=== PATIENT | male | born 1970 | race Caucasian/White ===

== ENCOUNTER → 2021-04-07 12:42 | Outpatient (CLI) | payer OTHER, SELFPAY ==
--- NOTE | 2021-04-07 12:50 | RAD_ITS ---
STUDY: X-RAY BONE SURVEY COMPLETE REASON FOR EXAM: Male, 50 years old. HYPERCALCEMIA TECHNIQUE: Single frontal view of the chest. One view of the pelvis was obtained. 2 views of the cervical spine were obtained. 2 views of the thoracic spine were obtained. 2 views of the lumbar spine were obtained. 1 views of the femur. 1 views of the humerus. : 2 views of the skull were obtained. COMPARISON: None. FINDINGS: CHEST: The lungs are clear and expanded. There is no demonstrated pleural abnormality. Normal size heart. Normal mediastinum and valente. Normal visualized pulmonary arteries. Normal visualized aortic arch and descending thoracic aorta. Normal visualized thoracic spine. Normal visualized ribs, clavicles, and shoulders. There is no demonstrated abnormality of the visualized soft tissue structures of the upper abdomen. PELVIS: There is a non-specific bowel gas pattern. Normal visualized soft tissue structures. Normal bilateral iliac wings, sacroiliac joints and visualized sacrum. Normal visualized bilateral superior and inferior pubic rami. Normal pubic symphysis. Normal ischial tuberosities. Normal visualized right femoral head. Normal right acetabulum. Normal right hip joint. Normal visualized left femoral head. Normal left acetabulum. Normal left hip joint. CERVICAL SPINE: Normal anterior atlantoaxial articulation. Normal odontoid process. Normal cervical lordosis. Normal vertebral bodies and endplates. Normal disc space heights. Normal visualized intervertebral neuroforamina. The soft tissue structures are unremarkable. THORACIC SPINE: Normal kyphosis of the thoracic spine. There is no substantial scoliosis. Normal thoracic vertebrae and endplates. Normal disc space heights. The soft tissue structures are unremarkable. LUMBAR SPINE: Normal lumbar lordosis. There is no substantial scoliosis. There is a normal alignment of the vertebrae. Normal vertebral bodies and endplates. Normal disc space heights. The soft tissue structures are unremarkable. RIGHT FEMUR: Normal visualized femur. Normal visualized soft tissue structure. LEFT FEMUR: Normal visualized femur. Normal visualized soft tissue structure. RIGHT HUMERUS :Normal visualized humerus. There is no demonstrated fracture or osseous destructive process. There is no demonstrated soft tissue abnormality. LEFT HUMERUS:Normal visualized humerus. There is no demonstrated fracture or osseous destructive process. There is no demonstrated soft tissue abnormality. SKULL: There is no demonstrated soft tissue swelling. Normal osseous calvarium. Normal visualized facial bones. Normal visualized paranasal sinuses. RAD/Bone Survey Comp(Axial&Append) IMPRESSION: No radiographic evidence of metastatic disease or multiple myeloma. No radiographic evidence of hyperparathyroidism. Electronically Signed: Jacinto Melchor MD at 17:29 EDT Tel , Service support ,
== END ==
PROVIDERS: PCP Nurse Practitioner; Referring Provider Nurse Practitioner; Visit Provider Nurse Practitioner
DX: E83.52 Hypercalcemia (principal)
CPT/HCPCS: 77075

== ENCOUNTER → 2021-08-16 12:57 | Outpatient (CLI) | payer OTHER, SELFPAY ==
--- NOTE | 2021-08-16 13:01 | CT_ITS ---
STUDY: CT BRAIN WITH AND WITHOUT CONTRAST REASON FOR EXAM: Male, 50 years old. ATAXIA RADIATION DOSAGE (If Supplied By Facility): CTDIvol = ( 47.06 ) mGy, DLP = ( 1727.72 ) mGycm TECHNIQUE: Transaxial CT imaging of the brain was performed pre and post contrast administration. The examination was performed with intravenous administration of 50 ML ISOVUE 370. Individualized dose optimization techniques were used for this CT. COMPARISON: Comparison is made with prior study dated 03/13/2010. FINDINGS: Normal soft tissue structures. Normal calvarium. Normal size ventricles and extra-axial spaces for the patient''s age. Normal white matter tracts of the cerebral hemispheres. Normal basal ganglia and thalami. Normal brainstem. Normal cerebellum. There is no intracranial hemorrhage. There are no findings of an acute ischemic infarction. Normal visualized paranasal sinuses. CT/Brain/Head W/WO Contrast IMPRESSION: Normal unenhanced and enhanced CT scan of the brain. Electronically Signed: Jamey Ortega MD at 14:46 EDT , Service support ,
[2021-08-16 13:41] LABS: CREATININE FINGERSTICK 1.2 mg/dL (0.70-1.30); EGFR FINGERSTICK > 60.0000 mL/min (>60)
== END ==
PROVIDERS: PCP Nurse Practitioner; Referring Provider Nurse Practitioner; Visit Provider Nurse Practitioner
DX: R51.9 Headache, unspecified (principal)
CPT/HCPCS: 70470; Q9967

== ENCOUNTER → 2023-01-18 | Outpatient (CLI) | payer OTHER, SELFPAY ==
[2023-01-18 15:37] LABS: Anion Gap 8 (5-15); BUN 14 mg/dL (7-18); BUN/Creat Ratio 13.7 RATIO (10-20); Calcium,Total 9.7 mg/dL (8.5-10.1); Chloride 109 mmol/L (98-107); Creatinine, Serum 1.02 mg/dL (0.70-1.30); EST Glomerular Filtration Rate 81 mL/min (>60); Est Glom Filt Rate - Afr Amer 98 mL/min (>60); Glucose 103 mg/dL (74-106); Potassium 3.6 mmol/L (3.5-5.1); Sodium Level 140 mmol/L (136-145)
== END | disposition home or self-care (01) ==
LOC: MTLAB 12:34
PROVIDERS: PCP Nurse Practitioner Family; Referring Provider Internal Medicine Pulmonary Disease; Visit Provider Internal Medicine Pulmonary Disease
DX: R09.02 Hypoxemia (principal)
CPT/HCPCS: 36415; 80048

== ENCOUNTER → 2023-02-20 | Outpatient (CLI) | payer OTHER, SELFPAY ==
[2023-02-20 12:23] LABS: Troponin-I HS 5 pg/mL (3.0-78.0)
== END | disposition home or self-care (01) ==
LOC: LABSPEC 11:58
PROVIDERS: PCP Nurse Practitioner Family; Referring Provider Nurse Practitioner Family; Visit Provider Nurse Practitioner Family
DX: R73.03 Prediabetes (principal); R07.89 Other chest pain
CPT/HCPCS: 84484

== ENCOUNTER → 2023-07-10 | Outpatient (CLI) | payer OTHER, SELFPAY ==
--- NOTE | 2023-07-14 14:23 | STRESSREP ---
Stress Test Report Date: 07/10/2023 Procedure: Exercise tolerance test Indications: Chest pain Consent: Per the patient Procedure: The patient exercised on a Felix protocol for 8 minutes and 15 seconds achieving a peak heart rate of 164 bpm (98% predicted maximal heart rate) with a peak blood pressure 200/98 mmHg and a peak MET capacity of approximately 10.1 MET's. The baseline ECG demonstrated normal sinus rhythm. The peak exercise ECG demonstrated sinus tachycardia with no significant ischemic changes. [There were no cardiac dysrhythmias pretest, during exercise, or recovery]. The functional capacity was considered normal for age. The patient had no complaint of chest discomfort during exercise or recovery. The examination was discontinued secondary to achieving target heart rate. Impression: 1. Technically adequate (percent predicted maximal heart rate greater than 85%) exercise tolerance test 2. Stress test is negative for exercise-induced chest pain. 3. Stress test test is negative for exercise-induced EKG changes of ischemia. 4. Functional capacity is normal for age This note was generated with [employer] software. It may contain incorrect words, spelling, and punctuation that were not noted in checking the note before signing.
== END | disposition home or self-care (01) ==
LOC: CVS 11:16
PROVIDERS: PCP Nurse Practitioner Family; Referring Provider Nurse Practitioner Family; Visit Provider Nurse Practitioner Family
DX: R07.89 Other chest pain (principal)
CPT/HCPCS: 93017

== ENCOUNTER → 2024-09-04 | Outpatient (CLI) | payer OTHER, SELFPAY ==
--- NOTE | 2024-09-04 10:49 | VDLE_ITS ---
Reason For Study: LLE Pain RIGHT LEFT CFV is compressible, spontaneous, phasic, GSV is normal. competent and demonstrates normal CFV is compressible, spontaneous, phasic, augmentation. competent, and demonstrates normal Procedure augmentation. This is a venous duplex using B-mode, color FV is compressible, spontaneous, phasic, flow and spectral Doppler. competent and demonstrates normal Exam performed in department. augmentation. The exam was diagnostic. POP V is compressible, spontaneous, phasic, A preliminary report was called and/or faxed competent and demonstrates normal to ALBERTO / Yari Bella. augmentation. T/P Trunk is compressible. PTV is compressible. LT PerV is compressible. VL/Venous Duplex US, Unilateral Interpretation Summary Deep veins of the left lower extremity are patent and compressible segmentally. There is no evidence of left lower extremity deep vein thrombosis. Valvular competence appears intac t within the proximal deep venous system on the left . The left great saphenous vein appears patent a nd compressible segmentally. The right common femoral vein is patent and compressible . Ordering Physician: Yari Bella Referring Physician: Yari Bella Performed By: Medardo Garcia RVT
== END | disposition home or self-care (01) ==
LOC: CVS 10:43
PROVIDERS: PCP Nurse Practitioner Family; Referring Provider Nurse Practitioner Family; Visit Provider Nurse Practitioner Family
DX: M79.662 Pain in left lower leg (principal)
CPT/HCPCS: 93971

== ENCOUNTER 2025-04-26 08:00 | Outpatient (RCR) | payer OTHER, SELFPAY ==
--- NOTE | 2025-03-19 15:30 | HP.PTEVAL_ITS ---
Patient's Visit Information Visit Information Visit Information: SUSANA MOJICA is a 54 year old M referred to Physical Therapy by JUDY Salamanca with a diagnosis of R shoulder pain. Date of Evaluation: 03/19/25 Physical Therapist: Bill Roque, PT, ATC Visit Plan Frequency: 2x /Week Duration: 4-6 Weeks Plan: R shoulder rot cuff strengthening, scap stab ex's, UBE, and HEP Subjective Subjective: Pt reports he has had R shoulder pain for 3 months. Pt notes the pain has progressively worsened over this span. Pt reports he lifted a steel whe el yesterday which resulted a sharp pain that radiated the whole way down his arm. 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 Pt is R hand dominant. 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 Pt reports this requires him to constantly use his R UE to operate the machinery. Pt notes occasional sleep difficulty at this time secondary to pain. Pt reports his pain is the worst when he elevates his arm in front of him, or reaches behind him. Pt denies shoulder popping, locking up, or giving out. 4/10 pain while sitting here in the clinic, 8-9/10 at worst (after his work day) Pain R shoulder: Pain Intensity (Out of 10): 4 Pain Intensity Range: 9 Objective Objective: Neuro: B UE sensation is WNL to light touch with the exception of R shoulder being hyposensitive to light touch. Palpation: Minor tenderness on distal supraspinatus and lateral shoulder. No obvious deformity noted at this time. ROM: L shoulder flex= 160, abd= 170, ER= 30, IR= WNL; R shoulder flex= 155, abd= 120, ER= 10, IR= WNL MMT: L shoulder flex= 27, abd= 40, ER= 26, IR= 31 #F; R shoulder flex= 10, abd= 8, ER= 12, IR= 19 #F Special tests: Pos empty can and HK sign. Balance/Special Test Scores Quick DASH Score: 36.3625 Goals Goal 1:: Decrease R shoulder pain x 50% to aid with sleep Goal Time Frame: 4-6 Weeks Goal 2:: Increase R shoulder ROM flex and abd ROM x 20-30 degrees to aid with overhead lifting activity Goal Time Frame: 4-6 Weeks Goal 3:: Increase R shoulder strength x 10#F to aid with IADL Goal Time Frame: 4-6 Weeks Goal 4:: I with HEP Goal Time Frame: 4-6 Weeks Rehabilitation Potential Physical Therapy Diagnosis: Pt has R shoulder pain, weakness, and limited ROM secondary to R shoulder impingement syndrome Rehabilitation Potential: Good Anticipated Interventions Patient/Client Instruction: Educate patient on: Condition and Plan of Care For the Purpose of:: To improve self management Therapeutic Exercise to Include: Strength training, Endurance training, Flexibilty training, Active ROM and Scapular Strength/Stabilization For the Purpose of:: To decrease pain, To increase ROM and To improve muscle performance and motor function Cryotherapy (ice pack, ice massage): Yes For the Purpose of:: To decrease pain Text: Thank you for the opportunity to evaluate your patient. For Medicare and Medicare HMO plans, please review the plan of care and approve it. It will need to be FAXED BACK to us at [phone] for Medicare purposes. For Medicare only, by signing this I certify the plan of care. Please let me know if there are questions or concerns regarding this plan of care. Physician Signature: Date:
--- NOTE | 2025-04-13 08:54 | HP.PTREVAL ---
Re-Evaluation Intro: Yari Bella, JARED-C, It has been my pleasure to treat SUSANA MOJICA over the last 9 visits for R shoulder pain. Please see the progress note below for an update on the physical therapy plan of care! Subjective Subjective: I think it has gotten better, but I still have pain. Objective Objective/Function: R shoulder pain ranges from 3-4/10 R shoulder ROM: flex= 170, abd= 120 degrees R shoulder MMT: flex= 20, abd= 9, ER= 8, IR= 22 #F Pt is showing progress, but still lacks functional strength Plan Plan Plan: 04/13/25- Cont with R shoulder rot cuff strengthening, scap stab ex's, UBE, and HEP Balance/Gait/Functional tests Balance/Special Test Scores Quick DASH Score: 38.6350 Goals Goals Goal 1:: Decrease R shoulder pain x 50% to aid with sleep Goal Time Frame: 4-6 Weeks Goal 2:: Increase R shoulder ROM flex and abd ROM x 20-30 degrees to aid with overhead lifting activity Goal Time Frame: 4-6 Weeks Goal 3:: Increase R shoulder strength x 10#F to aid with IADL Goal Time Frame: 4-6 Weeks Goal 4:: I with HEP Goal Time Frame: 4-6 Weeks Anticipated Interventions Anticipated Interventions Patient/Client Instruction: Educate patient on: Condition and Plan of Care For the Purpose of:: To improve self management Therapeutic Exercise to Include: Strength training, Endurance training, Flexibilty training, Active ROM and Scapular Strength/Stabilization For the Purpose of:: To decrease pain, To increase ROM and To improve muscle performance and motor function Cryotherapy (ice pack, ice massage): Yes For the Purpose of:: To decrease pain Re-Evaluation Ending Re-evaluation ending: Please do not hesitate to contact me at [phone] by phone or if you have questions or concerns regarding this new plan of care! Sincerely, Bill Roque, PT, ATC
--- NOTE | 2025-06-15 08:38 | HP.PT.NRP ---
Patient Information Patient Information: SUSANA MOJICA was seen in my office for initial evaluation on 03/19/25. The following Plan of Care was established for this patient: POC Established Initial Frequency: 2x /Week Initial Duration: 4-6 Weeks Anticipated Interventions Patient/Client Instruction: Educate patient on: Condition and Plan of Care For the Purpose of:: To improve self management Therapeutic Exercise to Include: Strength training, Endurance training, Flexibilty training, Active ROM and Scapular Strength/Stabilization For the Purpose of:: To decrease pain, To increase ROM and To improve muscle performance and motor function Cryotherapy (ice pack, ice massage): Yes For the Purpose of:: To decrease pain Last Seen Last Seen: This patient was last seen in our office . Pertinent comments regarding their Physical therapy will appear below: Pt has not returned in greater than 30 days and is discontinued at this time. At this point I will be discontinuing this patient from physical therapy. I would be happy to see this patient again in the future if found appropriate by the physician. Thank you! Bill Roque, PT, ATC Balance/Gait/Functional tests Balance/Special Test Scores Quick DASH Score: 38.6350
== END 2025-04-26 19:00 | disposition home or self-care (01) ==
LOC: PT 08:00
PROVIDERS: PCP Nurse Practitioner Family; Referring Provider Nurse Practitioner Family; Visit Provider Nurse Practitioner Family
DX: M25.511 Pain in right shoulder (principal)
CPT/HCPCS: 97110; 97161; 97530

== ENCOUNTER → 2025-06-19 | Outpatient (CLI) | payer OTHER, SELFPAY ==
--- NOTE | 2025-06-19 07:30 | MRI_ITS ---
PROCEDURE: UPPER EXT JOINT ONLY(ROUTINE) 06/19/2025 REASON FOR EXAM: RIGHT SHOULDER PAIN TECHNIQUE: T1, T2, PD, multiplanar multisequence images through the right shoulder were obtained without contrast. COMPARISON: March 17, 2025 FINDINGS: Bone Marrow: There is no bony contusion or occult fracture. AC joint: There is moderate AC joint hypertrophy without evidence of separation. There is a type 2 acromion. Rotator cuff: There is mild supraspinatus muscular atrophy. There is a full- thickness, 75% width tear of the supraspinatus footplate without retraction. There is moderate distal infraspinatus and subscapularis tendinopathy without full-thickness tear or retraction. The teres minor appears intact. Labrum: The labrum appears intact. Biceps tendon: The biceps tendon is present in the biceps tendon groove, with intact anchors. Effusion: There is a trace joint effusion. There is a trace amount of fluid in the subacromial subdeltoid bursa. There is no soft tissue mass or cyst. MRI/Upper Ext Joint Only(Routine) IMPRESSION: There is moderate AC joint hypertrophy without evidence of separation. There is mild supraspinatus muscular atrophy. There is a full-thickness, 75% width tear of the supraspinatus footplate withou t retraction. There is moderate distal infraspinatus and subscapularis tendinopathy without f ull-thickness tear or retraction. There is a trace joint effusion. There is a trace amount of fluid in the subacromial subdeltoid bursa. Reading Location: [facility]
== END | disposition home or self-care (01) ==
LOC: MRI 06:58
PROVIDERS: PCP Nurse Practitioner Family; Referring Provider Internal Medicine; Visit Provider Internal Medicine
DX: M25.511 Pain in right shoulder (principal)
CPT/HCPCS: 73221

== ENCOUNTER 2025-08-18 05:54 | Day surgery (SDC) | payer OTHER, SELFPAY ==
--- NOTE | 2025-08-11 08:21 | EKG12_ITS ---
Test Reason : PRE OP
[2025-08-11 09:23] LABS: Hematocrit 43.4 % (40-54); Hemoglobin 14.8 g/dL (13.0-16.5); Mean Corp Hgb Conc 34.1 g/dL (32-36); Mean Corpuscular Volume 91.8 fL (80-94); Mean Platelet Vol. 9.7 fl (6.2-12.0); Platelet Count 352 K/mm3 (150-450); RBC Distribution Width CV 13.8 % (11.6-14.6); RBC Distribution Width SD 46.9 fl (35.1-43.9); Red Blood Count 4.73 M/mm3 (4.6-6.2); White Blood Count 10.4 K/mm3 (4.4-11.0)
--- NOTE | 2025-08-12 16:33 | PAT.ANESEVAL ---
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 When Was Last Pacemaker Check QUESTION #4 FULL TEXT: You/Your Family Experience fever (hyperthermia) with Anesthesia Last Oral Intake Last Oral intake: Last Oral Intake NPO since Meds taken in AM with sips of water? Meds patient instructed to take am of surgery PONV PONV - teacher vocal: PONV - teacher vocal Female No 08/09/25 16:03 HX of Motion Sickness No 08/09/25 16:03 HX of N/V After Surgery No 08/09/25 16:03 Non-Smoker Yes 08/09/25 16:03 Duration of Surgery greater Yes 08/09/25 16:03 than 60 minutes Number of Risk Factors 2 08/09/25 16:03 PONV Score Moderate Risk 08/09/25 16:03 Height & Weight Height & Weight: Anesthesia: Height & Weight Height 5 ft 9 in 07/06/25 09:53 Respiratory Assessment Respiratory Assessment - teacher vocal: Respiratory Tract Infection Hx - teacher vocal Hx Respiratory Tract Infection No 08/09/25 16:03 STOP Sleep Apnea STOP Sleep Apnea - teacher vocal: STOP Sleep Apnea - teacher vocal Hx Hypertension Yes 08/09/25 16:03 Hx Sleep Apnea Yes 08/09/25 16:03 CPAP Yes 08/09/25 16:03 BIPAP No 08/09/25 16:03 Do you snore loudly (louder than talking or can be heard Do you often feel tired/ fatigued/ sleepy during daytime? Has anyone observed you stop breathing during sleep? STOP Results Positive 08/09/25 16:03 QUESTION #5 FULL TEXT : Do you snore loudly (louder than talking or can be heard through closed doors)? 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 Specify any problems Hx of Preganancy in last 3 N/A 08/09/25 16:03 Months Nurse Filling Out Transfusion SHILOHOEYO 08/09/25 16:03 & Questions: Date: 08/09/25 08/09/25 16:03 Time: 16:09 08/09/25 16:03 Patient unable to answer at this time (ie. confused, unrespo /Reproduction History /Reproductive History - teacher vocal: /Reproductive Hx- teacher vocal Hx Now Gestational Age (in weeks): EDC: Hx Hx Para Hx Section SAB No 08/09/25 16:03 PFSH Medical History (Updated 08/09/25 @ 16:07 by Shaila Rivas) Wears glasses Anxiety Marijuana use Heartburn Smoker Sleep apnea CPAP (continuous positive airway pressure) dependence History of stress test Arthrosis of right acromioclavicular joint Right rotator cuff tear Impingement of right shoulder Right shoulder pain Appendix abscess High blood pressure Home Medications ?Medication ?Instructions ?Recorded ?Last Taken ?Type amlodipine 5 mg-benazepril 20 mg 1 cap PO QDAY 05/14/25 Unknown History capsule duloxetine 60 mg capsule,delayed 60 mg PO QDAY 05/14/25 Unknown History release fenofibrate nanocrystallized 145 145 mg PO QDAY 05/14/25 Unknown History mg tablet lorazepam 0.5 mg tablet 0.5 mg PO QDAY PRN anxiety 05/14/25 Unknown History Allergy/AdvReac Type Severity Reaction Status Date / Time No Known Allergies Allergy Verified 08/09/25 16:01 Surgical History (Updated 08/09/25 @ 16:09 by Shaila Rivas) History of appendectomy Social History Smoking Status: Current every day smoker tobacco type: cigarettes alcohol intake: never Audit: Pertinent Findings Pertinent Findings EKG Perinent findings: EKG 08/11/2025. Normal sinus rhythm. Recommendation Anesthesia Recommendation Anesthesia recommendation: OPTIMIZED for anesthesia
[2025-08-18] VITALS (11 sets, daily range): BP systolic 128–189; BP diastolic 78–102; PULSE 69–95; RESP 16–20; TEMP 36.1–36.8; O2SAT 92–98; BMI 36.1
[2025-08-18] MEDS: Lactated Ringers 1,000 ML 15 ML IV (06:38)
--- NOTE | 2025-08-18 07:04 | PCM.HP.STD ---
HPI - General HPI Narrative SUSANA MOJICA, is a 54 M who presents for right shoulder arthroscopy, subacromial decompression, rotator cuff repair, distal clavicle excision. No change to history and physical exam. Risks alternatives benefits discussed as well as postoperative instructions and narcotic counseling. Patient understand shoulder marked no further questions or concerns. MR#: [id number] Acct: [id number] Name: SUSANA MOJICA Rep #: [id number] : 1970 Provider: Dr. Stefan Feldman MD Age/Sex: 54/M Location: [facility] [place] Status: Signed Intake Vital Signs 05/14/2508:22 07/06/2509:53 Height 5 ft 9 in 5 ft 9 in Weight: 247 lb 6 oz 245 lb BMI 36.5 36.1 Intake Visit Reasons: RIGHT SHOULDER Chief Complaint: Right shoulder and right arm MRI review Accompanied by: Self Is patient in pain?: Yes Pain scale (1-10): 6 Allergies No Known Allergies Allergy (Unverified 07/06/25 09:55) Medications ?Medication ?Instructions ?Recorded ?Confirmed ?Type amlodipine 5 mg-benazepril 20 mg 1 cap PO QDAY 05/14/25 07/06/25 History capsule duloxetine 60 mg capsule,delayed 60 mg PO QDAY 05/14/25 07/06/25 History release fenofibrate nanocrystallized 145 145 mg PO QDAY 05/14/25 07/06/25 History mg tablet lorazepam 0.5 mg tablet 0.5 mg PO QDAY PRN 05/14/25 07/06/25 History Have you fallen in the past year?: No PFSH Medical History (Updated 07/06/25 @ 10:11 by Stefan Feldman MD) Arthrosis of right acromioclavicular joint Right rotator cuff tear Impingement of right shoulder Right shoulder pain Appendix abscess High blood pressure Social History Smoking Status: Current every day smoker alcohol intake: never HPI RIGHT SHOULDER Details: This documentation accurately reflects the service provided and the decisions made by me, Dr. Stefan Feldman MD 07/06/25 0917. Part of today?s visit was documented by [ ], acting as scribe. SUSANA MOJICA is a 54 year old M here today for FU R shoulder MRI. Cortisone injection 6 weeks ago. 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 Patient is a 1 pack-a-day smoker he has tried to quit in the past. The cortisone injection helped about 80 percent. Supplemental Info [facility] Imaging Services [address] [place] [address] Upper Ext Joint Only(Routine) MR#: [id number] Acct: [id number] Name: SUSANA MOJICA Rep #: [id number] : 1970 M 54 From: Luis Lundberg MD PCP: KISHORE SalamancaC Status: REG CLI Study: Upper Ext Joint Only(Routine) Date of Exam: 06/19/25 Exam# [id number] Ordering Dr: Opal Noyola MD PROCEDURE: UPPER EXT JOINT ONLY(ROUTINE) 06/19/2025 REASON FOR EXAM: RIGHT SHOULDER PAIN TECHNIQUE: T1, T2, PD, multiplanar multisequence images through the right shoulder were obtained without contrast. COMPARISON: March 17, 2025 FINDINGS: Bone Marrow: There is no bony contusion or occult fracture. AC joint: There is moderate AC joint hypertrophy without evidence of separation. There is a type 2 acromion. Rotator cuff: There is mild supraspinatus muscular atrophy. There is a full-thickness, 75% width tear of the supraspinatus footplate without retraction. There is moderate distal infraspinatus and subscapularis tendinopathy without full-thickness tear or retraction. The teres minor appears intact. Labrum: The labrum appears intact. Biceps tendon: The biceps tendon is present in the biceps tendon groove, with intact anchors. Effusion: There is a trace joint effusion. There is a trace amount of fluid in the subacromial subdeltoid bursa. There is no soft tissue mass or cyst. MRI/Upper Ext Joint Only(Routine) IMPRESSION: There is moderate AC joint hypertrophy without evidence of separation. There is mild supraspinatus muscular atrophy. There is a full-thickness, 75% width tear of the supraspinatus footplate without retraction. There is moderate distal infraspinatus and subscapularis tendinopathy without full-thickness tear or retraction. There is a trace joint effusion. There is a trace amount of fluid in the subacromial subdeltoid bursa. I independently reviewed the imaging. Concur with radiologist report. Coding Level of Care Code Off vis,est,level 4 Diagnoses Right shoulder pain M25.511 Impingement of right shoulder M25.811 Right rotator cuff tear M75.101 Arthrosis of right acromioclavicular joint M19.011 Assessment and Plan Assessment and Plan (1) Right shoulder pain: Status: Acute Plan: 54 yr M with R shoulder MRI moderate AC joint hypertrophy, full-thickness, 75% width tear of the supraspinatus footplate without retraction. There is a trace amount of fluid in the subacromial subdeltoid bursa. Smoker 1ppd, I counseled him to quit or cut back as this is a normal risk factor for delayed or nonhealing rotator cuff repairs. The patient has pain at the AC joint with a positive cross body adduction test indicating he may benefit from a distal clavicle excision. We discussed the pros and cons risks and benefits of conservative versus surgical management. Generally people with full-thickness rotator cuff tears do better with surgical repair at 10 years follow-up. Patient understands wished to go ahead with right shoulder arthroscopy, subacromial decompression, rotator cuff repair, distal clavicle excision. Low ROHI so not indicated for patch. Pros and cons risks and benefits were discussed with the patient including but not limited to infection, pain, stiffness, bleeding, damage to surrounding structures, neurovascular injury, recurrence or retear, failure or wear of hardware or fixation, instability, fracture, deep vein thrombosis and pulmonary embolism, anesthetic risks, , patient dissatisfaction, need for further surgery and other risks. Patient understood and wished to proceed with surgery, and signed the informed consent documentation. Patient counselled on non-operative and operative means of treating shoulder pain. Conservative options include but not limited to: 1. Rest and Activity Modification: Giving your shoulder time to heal by avoiding movements that cause pain can help. This may involve limiting overhead activities or heavy lifting. 2. Physical Therapy: A physical therapist can guide you through exercises that strengthen the muscles around the shoulder, improve flexibility, and reduce strain on the rotator cuff tendon. 3. Ice and Heat Therapy: Applying ice to the shoulder can help reduce swelling and pain, especially after activity. Heat can be helpful to relax tense muscles and improve blood flow before exercises. 4. Anti-Inflammatory Medications: Mviz-bff-vyffgmv medications like ibuprofen or naproxen can help reduce pain and inflammation in the tendon. 5. Corticosteroid Injections: If the pain is more severe, a steroid injection can reduce inflammation in the shoulder and provide relief for a longer period. 6. Platelet-Rich Plasma (PRP) Injection: This treatment involves using your own blood to promote healing in the tendon. The plasma is rich in growth factors that can encourage tissue repair. 7. TENS (Transcutaneous Electrical Nerve Stimulation): This therapy uses a small electrical current to help manage pain and promote healing by stimulating nerves. (2) Impingement of right shoulder: Status: Acute (3) Right rotator cuff tear: Status: Acute (4) Arthrosis of right acromioclavicular joint: Status: Acute Clinical Quality Measures Falls Risk Screening/Assistive Devices Have you fallen in the past year?: No Ortho Exam General General: Yes no acute distress Neurologic: Yes alert and Yes oriented x3 Psychologic: Yes reasonable and appropriate Right Shoulder Skin/Wound: Yes CDI, No ecchymosis, No erythema and No swelling Testing: Positive Hawkin's, Neer's, AROM-Forward Elevation 0-180, AROM-External Rotation at side 0-60, empty can, cross arm and belly press normal; Negative Speed's, TTP Biceps, TTP AC Joint, Drop Arm or scapular winging SHOULDER: normal motor and sens to ax nerve, and MRU and AIN/PIN Strength 4+ forward elevation and 5 in external rotation positive painful arc sign. pain at ACJ [facility] Medical History (Updated 08/09/25 @ 16:07 by Shaila Rivas) Wears glasses Anxiety Marijuana use Heartburn Smoker Sleep apnea CPAP (continuous positive airway pressure) dependence History of stress test Arthrosis of right acromioclavicular joint Right rotator cuff tear Impingement of right shoulder Right shoulder pain Appendix abscess High blood pressure Home Medications ?Medication ?Instructions ?Recorded ?Last Taken ?Type amlodipine 5 mg-benazepril 20 mg 1 cap PO QDAY 05/14/25 08/18/25 History capsule duloxetine 60 mg capsule,delayed 60 mg PO QDAY 05/14/25 Unknown History release fenofibrate nanocrystallized 145 145 mg PO QDAY 05/14/25 Unknown History mg tablet lorazepam 0.5 mg tablet 0.5 mg PO QDAY PRN anxiety 05/14/25 08/17/25 History Allergy/AdvReac Type Severity Reaction Status Date / Time No Known Allergies Allergy Verified 08/18/25 06:27 Surgical History (Updated 08/09/25 @ 16:09 by Shaila Rivas) History of appendectomy Social History Smoking Status: Current every day smoker tobacco type: cigarettes alcohol intake: never Vital Signs Vital Signs Vital Signs: 08/18/25 06:28 08/18/25 06:28 Temperature 97.8 F Temperature Source Temporal Pulse Rate 89 Respiratory Rate 16 Respiratory Pattern Normal Blood Pressure 128/78 H Blood Pressure Mean 94 Blood Pressure Source Monitor Blood Pressure Position Semi-Fowlers Blood Pressure Location Right Arm Pulse Ox 96 Oxygen Delivery Method Room Air Weight Weight: 244 lb 11.41 oz Body Mass Index (BMI) 36.1 Results Lab / Micro Data 08/11/25 08:18
[2025-08-18] MEDS: Midazolam 2 MG/2 ML Syringe IV (07:10)
--- NOTE | 2025-08-18 07:28 | PCM.PRE.AN2 ---
ASA Classification* ASA Classification ASA Classification: 2 Assessment & Plan Anesthesia* Anesthesia Assessment Anesthesia Assessment: Discussed sedation and/or anesthesia options, risks, benefits, and alternatives with patient/parents/legal guardian/POA. Questions invited. The patient/parents/legal guardian/POA seems to understand and agrees to proceed with anesthesia plan. Reviewed the physical assessment, medical history, allergy history and patient home medications list prior to surgery/procedure/anesthetic and documented any changes. Performed airway and anesthesia risk assessments. Anesthesia Type Anesthesia Type: General and Block Anesthesia Focused Assessment* Temperature: 97.8 F Pulse Rate: 89 Blood Pressure: 128/78 Respiratory Rate: 16 Pulse Ox: 96 Airway Assessment Mouth opens: >3 cm Mallampati Score: II Labs Anesthesia Preop lab: CBC WBC, (4.4-11.0) 10.4 K/mm3 08/11/25, 08:18 RBC, (4.6-6.2) 4.73 M/mm3 08/11/25, 08:18 Hgb, (13.0-16.5) 14.8 g/dL 08/11/25, 08:18 Hct, (40-54) 43.4 % 08/11/25, 08:18 Plt Count, (150-450) 352 K/mm3 08/11/25, 08:18 CHEMISTRY Potassium, (3.5-5.1) 3.6 mmol/L 01/18/23, 12:36 Sodium, (136-145) 140 mmol/L 01/18/23, 12:36 BUN, (7-18) 14 mg/dL 01/18/23, 12:36 Creatinine, (0.70-1.30) 1.02 mg/dL 01/18/23, 12:36 Glucose, (74-106) 103 mg/dL 01/18/23, 12:36 COAG Pre-Assessment Diagnosis/Proposed Procedure Planned Operative Procedure(s): ROTATOR CUFF REPAIR, SUBACROMIAL DECOMPRESSION Anesthesia History 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 When Was Last Pacemaker Check QUESTION #4 FULL TEXT: You/Your Family Experience fever (hyperthermia) with Anesthesia Last Oral Intake Last Oral intake: Last Oral Intake NPO since 19:00 08/18/25 06:28 Meds taken in AM with sips of Yes 08/18/25 06:28 water? Meds patient instructed to amlodipine 08/18/25 06:28 take am of surgery PONV PONV - software test technician: PONV - software test technician Female No 08/09/25 16:03 HX of Motion Sickness No 08/09/25 16:03 HX of N/V After Surgery No 08/09/25 16:03 Non-Smoker Yes 08/09/25 16:03 Duration of Surgery greater Yes 08/09/25 16:03 than 60 minutes Number of Risk Factors 2 08/09/25 16:03 PONV Score Moderate Risk 08/09/25 16:03 Height & Weight Height & Weight: Anesthesia: Height & Weight Height 5 ft 9 in 08/18/25 06:28 Weight: 111 kg 08/18/25 06:28 Body Mass Index (BMI) 36.1 08/18/25 06:28 Respiratory Assessment Respiratory Assessment - software test technician: Respiratory Tract Infection Hx - software test technician Hx Respiratory Tract Infection No 08/09/25 16:03 STOP Sleep Apnea STOP Sleep Apnea - software test technician: STOP Sleep Apnea - software test technician Hx Hypertension Yes 08/09/25 16:03 Hx Sleep Apnea Yes 08/09/25 16:03 CPAP Yes 08/09/25 16:03 BIPAP No 08/09/25 16:03 Do you snore loudly (louder than talking or can be heard Do you often feel tired/ fatigued/ sleepy during daytime? Has anyone observed you stop breathing during sleep? STOP Results Positive 08/09/25 16:03 QUESTION #5 FULL TEXT : Do you snore loudly (louder than talking or can be heard through closed doors)? 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 Specify any problems Hx of Preganancy in last 3 N/A 08/09/25 16:03 Months Nurse Filling Out Transfusion SKOERNER 08/09/25 16:03 & Questions: Date: 08/09/25 08/09/25 16:03 Time: 16:09 08/09/25 16:03 Patient unable to answer at this time (ie. confused, unrespo /Reproduction History /Reproductive History - software test technician: /Reproductive Hx- software test technician Hx Now Gestational Age (in weeks): EDC: Hx Hx Para Hx Section SAB No 08/09/25 16:03 Active Medications Active Medications: Current Medications Generic Name Dose Route Start Last Admin Trade Name Freq PRN Reason Stop Dose Admin Cefazolin Sodium 2 gm/ Sodium 110 mls @ 200 mls/hr 08/18/25 07:30 Chloride IV 08/18/25 08:02 INTRAOP ONE Lactated Ringer's 1,000 mls @ 15 mls/hr 08/18/25 06:30 08/18/25 06:38 IV 15 mls/hr .Q48H AYO Administration PFSH Medical History Wears glasses Anxiety Marijuana use Heartburn Smoker Sleep apnea CPAP (continuous positive airway pressure) dependence History of stress test Arthrosis of right acromioclavicular joint Right rotator cuff tear Impingement of right shoulder Right shoulder pain Appendix abscess High blood pressure Home Medications ?Medication ?Instructions ?Recorded ?Last Taken ?Type amlodipine 5 mg-benazepril 20 mg 1 cap PO QDAY 05/14/25 08/18/25 History capsule duloxetine 60 mg capsule,delayed 60 mg PO QDAY 05/14/25 Unknown History release fenofibrate nanocrystallized 145 145 mg PO QDAY 05/14/25 Unknown History mg tablet lorazepam 0.5 mg tablet 0.5 mg PO QDAY PRN anxiety 05/14/25 08/17/25 History Allergy/AdvReac Type Severity Reaction Status Date / Time No Known Allergies Allergy Verified 08/18/25 06:27 Surgical History History of appendectomy Social History Smoking Status: Current every day smoker tobacco type: cigarettes alcohol intake: never Review of Systems (Anesthesia) ROS Narrative System reviewed and no additional complaints, except as documented.
[2025-08-18] MEDS: Cefazolin 1 GM/5 ML Vial 2 GM IV (07:30)
[2025-08-18] MEDS: Lidocaine 1% (5 ml sdv) 5 ML Vial 10 ML IV (07:35)
[2025-08-18] MEDS: Epinephrine (1 mg/ml) 1 MG/ML VIAL (08:00)
--- NOTE | 2025-08-18 08:53 | OP.PCM_ITS ---
Procedures Musculoskeletal
--- NOTE | 2025-08-18 08:53 | PCM.OPRPT ---
Problems Associated Problem List Diagnoses (1) Impingement of right shoulder: (2) Right rotator cuff tear: (3) Right shoulder pain: (4) Arthrosis of right acromioclavicular joint: Procedures Musculoskeletal [id number]: Other Procedure See Report Operative Report (Standard) Operative Information Date of Procedure: 08/18/25 Pre-Operative Diagnosis: Right shoulder impingement syndrome AC joint arthrosis and rotator cuff tear Post-Operative Diagnosis: Same Surgery/Procedure Performed: Right shoulder arthroscopy subacromial decompression distal clavicle excision rotator cuff repair mold repair technician: Yes Industrial Green Systems Designer: torito Tasks completed by first line production supervisor: Retracting Additional assistant oceanographer?: No Type of Anesthesia: Block,Regional and General RN Documented Start/Stop Times: Operation Date: 08/18/25 07:30 Case Time Into Pre-Op 08/18/25 06:15 Anesthesia Start 08/18/25 07:30 Into Room 08/18/25 07:30 Procedure Start 08/18/25 08:00 Procedure End 08/18/25 08:58 Procedure Start Time: 08:00 Procedure Stop Time: 08:58 Select all DRAINS/GRAFTS/IMPLANTS that apply: None Estimated Blood Loss: 25 Specimen collected: No Description of surgery: Patient brought to the operating room theater. Placed supine on the table. Preoperative block given. 2 g IV Ancef administered prior to the start of the procedure. General anesthesia induced. Patient transferred to the right side up lateral decubitus beanbag positioner axillary roll placed. All bony prominences padded. SCDs on the legs. Upper extremity prepped and draped in the usual sterile fashion with chlorhexidine-based prep solution allowing over 3 minutes drying time prior to draping. 10 pounds of inline traction with the arm in 40 degrees of abduction was utilized. Preoperative timeout performed to confirm the site patient and the surgery. Began by inserting the arthroscope into the intra-articular portion of the shoulder through a standard posterior arthroscopy portal. Did a full diagnostic arthroscopy. Created an anterior portal inside out spinal needle localization through the rotator interval. On humeral head and glenoid cartilage appeared normal. There is some fraying of the anterior labrum and the biceps tendon long head mild fraying, stable base, gentle debridement of 2 structures. No loose bodies axillary recess entered. Subscapularis looked normal, no tears. The anterior leading edge of the tendon had a complete full-thickness tear 1cm by 1cm, crescent shaped. I then inserted the scope into the subacromial space. I performed a complete bursectomy. There is a minor amount of bursitis. There is very slight downsloping of the acromion I flattened this using a high speed peyton instrument by about 3 mm. Identified the AC joint this appeared hypertrophic. Did a distal clavicle excision for 4mm to flat margins. I established accessory lateral and another accessory lateral portal. I placed a cannula through this. Identified the tear site at the anterior leading edge. I used the Arthrex power pick for multiple trephination's at the greater tuberosity for healing. Tear was slightly mobile, although not enough to completely cover the GT footprint. Used inverted horizontal mattress fiber tape suture as well as a Arthrex fiber link suture in between that to create a ripstop Greg-Lewis configuration with a luggage tag figuration for the middle suture. I then took the 3 suture limbs into a Arthrex 4.75 mm bio composite swivel lock anchor laterally just lateral to the footprint. This achieved good compression of the tear in good repair I also used the accessory included suture through the anterior slight leading edge tear as well and then converted this and cut the suture short. Good repair, no elevation at the tear site, solid bone and anchor purchase. Arthroscope withdrawn wounds thoroughly irrigated portal sites closed with 3-0 Monocryl suture. Skin cleaned with wet dry dressing followed application of Steri-Strips Adaptic 4 x 4 gauze ABD dressing cloth tape and an abduction pillow sling for the upper extremity. Patient woken up from the general anesthetic transferred off the operating table taken to postanesthetic care unit in stable condition. All sponge needle instrument counts were correct no complications. Plan for the patient discharged home according to day surgery criteria follow-up in the office within 2 weeks time. [id number], [id number], [id number], Surgical Findings: as above. Complications Complications: No Admit VTE Documentation VTE Present on Admission: No VTE Mechan Device Prophylaxis: SCD's VTE Pharm Prophylaxis ordered?: No Reason prophylaxis not ordered: Treatment Not Indicated
--- NOTE | 2025-08-18 08:59 | DCINST_ITS ---
Discharge Instructions
--- NOTE | 2025-08-18 08:59 | EX.PCM.DISCH ---
Discharge Instructions Diet Discharge Diet: No restrictions Activity Ice area for (Minutes): 10 Lifting Restrictions: no lifting over 1 pound, ok to remove sling at rest, keep arm on body Additional Activity Instructions:: 4x / day pendulums, hand wrist elbow ROM. Dressing / Incision Call your doctor if your incision/area has: Continuous Slow Oozing, Sudden Increased Bleeding, Increased Pain/ Swelling, Increased Redness, Foul Smelling Discharge and Swelling at the incision site Call your doctor if you observe: Fever of 101 or Higher, Coldness, Increased Pain and Numbness or Tingling Change Dressing in: leave in place till F/U Cleanse incision/area with: Do not get Incision Wet Follow Up Care Please Follow Up With: Stefan Feldman MD When: within 2 weeks Test Results: Test results from this visit will be discussed in further detail at your follow-up appointment, if applicable. Discharge Plan Admission Attending Provider: tSefan Feldman Primary Care Provider: Yari Bella Consulting Providers: Mick Sanders Instructions Patient Instructions: After Shoulder Arthroscopy Print Language: Lebanese Discharge Orders/Prescriptions Prescriptions: New oxycodone-acetaminophen [Endocet] 5-325 mg tablet 1 tab PO Q4H MDD 6 PRN (Reason: pain) 5 Days Qty: 30 0RF No Action amlodipine-benazepril 5-20 mg capsule 1 cap PO QDAY lorazepam 0.5 mg tablet 0.5 mg PO QDAY PRN (Reason: anxiety) fenofibrate nanocrystallized 145 mg tablet 145 mg PO QDAY duloxetine 60 mg capsule,delayed release(DR/EC) 60 mg PO QDAY Other Ambulatory Orders: 12 Lead EKG (Routine) Timeframe: [id number] Location: None Selected Ordered By: Dr. Mick Sanders Referrals / Follow Up: Stefan Feldman MD [Med Staff - Active Staff, Orthopedics] Yari Bella, ENTRY LEVEL ACCOUNT REPRESENTATIVE-C [Primary Care Provider, Internal Medicine] Disposition Disposition (needs filled in before D/C Order can be placed): Home, Self Care
--- NOTE | 2025-08-18 09:14 | POSTOP.ANE_ITS ---
Anesthesia: Postop Eval I
--- NOTE | 2025-08-18 09:14 | PCM.POST.ANE ---
Anesthesia: Postop Eval I Current Vital Signs Temperature: 98.3 F Pulse Rate: 95 Blood Pressure: 156/90 Respiratory Rate: 20 Pulse Ox: 96 Assessment Airway patent: Yes Spontaneous unlabored respirations: Yes nausea: No Vomiting: No Anesthesia Complication: No Fluid Hydration Crystalloid volume administer (ml): 700 Total IV fluid infused: 700 Progress Note Anesthesia document: Postop Eval 1 completed: Yes
--- NOTE | 2025-08-18 10:12 | POSTOPAN2_ITS ---
Anesthesia Postop Eval I Sum
--- NOTE | 2025-08-18 10:12 | PCM.POSTANE2 ---
Anesthesia Postop Eval I Sum Postop Eval Completion status Anesthesia document: Postop Eval 1 completed: Yes Anesthesia Postop Eval I Summary Anesthesia Postop Eval I Summary: Anesthesia Postop Eval I: Assessment Summary Airway patent Yes 08/18/25 09:14 [email or web address] Spontaneous unlabored Yes 08/18/25 09:14 [email or web address] respirations Mental status nausea No 08/18/25 09:14 [email or web address] Vomiting No 08/18/25 09:14 [email or web address] Anesthesia Postop Eval I: Fluid Summary Crystalloid volume administer 700 08/18/25 09:14 [email or web address] (ml) Colloids volume administered ( ml) Blood Product volume administered (ml) Total IV fluid infused 700 08/18/25 09:14 [email or web address] Anesthesia Postop Eval I: Summary Notes Anesthesia Complication No 08/18/25 09:14 [email or web address] Anesthesia Complication Comment: Post-operative progress note Anesthesia: Postop Eval II Evaluation Mental status: Awake Pain Level: 1 nausea: Yes Vomiting: Yes
[2025-08-18] MEDS: Ketorolac 30 MG/ML Syringe IM (11:05)
== END 2025-08-18 11:30 | disposition home or self-care (01) ==
LOC: SDC 05:55 → AC 06:02
PROVIDERS: Anesthesiology; PCP Nurse Practitioner Family; Referring Provider Orthopaedic Surgery Sports Medicine; Visit Provider Orthopaedic Surgery Sports Medicine
PROC: (CPT 29805; principal; 2025-08-18 07:10)
DX: M75.101 Unspecified rotator cuff tear or rupture of right shoulder, not specified as traumatic (principal); M75.41 Impingement syndrome of right shoulder; M19.011 Primary osteoarthritis, right shoulder; M25.811 Other specified joint disorders, right shoulder; I10 Essential (primary) hypertension; F17.210 Nicotine dependence, cigarettes, uncomplicated; Z79.899 Other long term (current) drug therapy
CPT/HCPCS: 29827; 29824; 29826; 64415; 36415; 85027; 93005; C1713; J2405